=== PATIENT | female | born 1935 | race American Indian/Alaskan Native ===

== ENCOUNTER 2019-06-30 11:07 | Emergency (ER) | payer MEDICARE | END 2019-06-30 13:24 | disposition home or self-care (01) | LOC: ED 11:07 | CPT/HCPCS: 72100 ==

== ENCOUNTER 2019-07-01 13:43 | Emergency (ER) | payer MEDICARE ==
[2019-07-01 14:15] VITALS: BP 170/77
--- NOTE | 2019-07-01 15:06 | Event Note ---
Face to Face: For this encounter I have reviewed the PA/PSYCHOLOGIST COUNSELING documentation, treatment plan, medical decision making, and I had face to face time with this patient. Mrs. Woodward is a very pleasant 83-year-old female who presents with right groin pain head pain radiating to the back. She has a history of degenerative disc disease in the lumbar spine. She recently traveled from [place] by plane to visit her daughter for the holidays. She recalls slight pain in the groin and back when lifting luggage. She was evaluated by my colleague on yesterday. X-rays were obtained. She was discharged home with tramadol. Tramadol did not help her pain. Taft on Yesterday took away her pain on yes completely. I evaluated the patient. She has full range of motion in the right hip and back without deformity or tenderness. I do not suspect fracture without direct trauma. Recommended Taft prescripton.
--- NOTE | 2019-07-01 15:31 | Emergency Department Report ---
ED Recheck HPI - General Chief Complaint: Extremity Injury, Lower Stated Complaint: R SIDE PAIN Time Seen by Provider: 07/01/19 14:44 Source: patient Mode of arrival: Wheelchair Limitations: Physical Limitation - History of Present Illness Initial Comments: This is a 83-year-old female nontoxic, well nourished in appearance, no acute signs of distress presents to the ED with c/o of medication refill. Patient was seen yesterday and received x-rays of lumbar and hip that was unremarkable. Patient stated received Rutledge in the ER which causes pain to resolving subsided but then was discharged with tramadol and stated pain is not controlled with tramadol. Patient denies any new or acute injuries. Patient was seen yesterday and started to have pain to right hip/lower back area after heavy lifting luggage and feeling a sensation of popping. Patient denies any radiation of pain. Patient denies decreased range of motion or abnormal gait. Patient denies any trauma. Denies any bladder or bowel instability. Patient denies any urinary symptoms. Denies any fever, chills, nausea, vomiting, headache, stiff neck, chest pain or shortness of breath. Patient denies any numbness or tingling. Denies any allergies. Denies significant past medical history. MD Complaint: medication refill request -: days(s) Returns Today for: request for prescription Symptoms Since Prior Visit: no new symptoms Associated Symptoms: none. denies: fever, chills, chest pain, shortness of breath, rash, malaise, nasuea, abdominal pain - Related Data Previous Rx's Medication Instructions Recorded Last Taken Type traMADoL [Ultram] 50 mg PO Q6HR PRN #21 tablet 06/30/19 Unknown Rx HYDROcodone/APAP 7.5-325 [Rutledge 1 each PO Q8HR PRN #12 tablet 07/01/19 Unknown Rx 7.5/325] Allergies Allergy/AdvReac Type Severity Reaction Status Date / Time No Known Allergies Allergy Verified 06/30/19 11:34 ED Review of Systems ROS: Stated complaint: R SIDE PAIN Other details as noted in HPI Constitutional: denies: chills, fever Eyes: denies: eye pain, eye discharge, vision change ENT: denies: ear pain, throat pain Respiratory: denies: cough, shortness of breath, wheezing Cardiovascular: denies: chest pain, palpitations Endocrine: no symptoms reported Gastrointestinal: denies: abdominal pain, nausea, diarrhea Genitourinary: denies: urgency, dysuria, discharge Musculoskeletal: denies: back pain, joint swelling, arthralgia Skin: denies: rash, lesions Neurological: denies: headache, weakness, paresthesias Psychiatric: denies: anxiety, depression Hematological/Lymphatic: denies: easy bleeding, easy bruising ED Past Medical Hx - Past Medical History Hx Hypertension: Yes Additional medical history: L leg neuropathy. gastroparesis. fluid overload- on lasix - Surgical History Additional Surgical History: NERVE TUMOR REMOVAL. R ovary removal - Social History Smoking Status: Never Smoker Substance Use Type: None - Medications Home Medications: Home Medications Medication Instructions Recorded Confirmed Last Taken Type traMADoL [Ultram] 50 mg PO Q6HR PRN #21 tablet 06/30/19 Unknown Rx HYDROcodone/APAP 7.5-325 [Rutledge 1 each PO Q8HR PRN #12 tablet 07/01/19 Unknown Rx 7.5/325] ED Physical Exam - General Limitations: Physical Limitation General appearance: alert, in no apparent distress - Head Head exam: Present: atraumatic, normocephalic - GI/Abdominal GI/Abdominal exam: Present: soft, normal bowel sounds. Absent: distended, tenderness, guarding, rebound, rigid, diminished bowel sounds - Extremities Exam Extremities exam: Present: normal inspection, full ROM, tenderness, normal capillary refill. Absent: joint swelling, calf tenderness - Expanded Lower Extremity Exam Right Hip exam: Present: normal inspection, full ROM, tenderness, external rotation, internal rotation, pelvic stability. Absent: swelling, abrasion, laceration, ecchymosis, deformity, crepidus, dislocation, erythema, shortening Upper Leg exam: Present: normal inspection, full ROM. Absent: tenderness, swelling Knee exam: Present: normal inspection, full ROM. Absent: tenderness, swelling Lower Leg exam: Present: normal inspection, full ROM. Absent: tenderness, swelling, abrasion, laceration, ecchymosis, deformity, crepidus, dislocation, erythema, palpable cord, Cem's sign Ankle exam: Present: normal inspection, full ROM. Absent: tenderness, swelling Foot/Toe exam: Present: normal inspection, full ROM. Absent: tenderness, swelling Neuro vascular tendon exam: Present: no vascular compromise Gait: Positive: observed and limited by pain - Back Exam Back exam: Present: normal inspection, full ROM, paraspinal tenderness (right- sided lumbar paraspinal area). Absent: tenderness, CVA tenderness (R), CVA tenderness (L), muscle spasm, vertebral tenderness, rash noted - Expanded Back Exam Expanded Back exam: Absent: saddle anesthesia Back exam: Negative Straight Leg Raising: Left, Right - Neurological Exam Neurological exam: Present: alert, oriented X3 - Psychiatric Psychiatric exam: Present: normal affect, normal mood - Skin Skin exam: Present: warm, dry, intact, normal color. Absent: rash ED Course Vital Signs 07/01/19 14:13 Temperature 98.6 F Pulse Rate 73 Respiratory 18 Rate Blood Pressure 170/77 O2 Sat by Pulse 95 Oximetry - Reevaluation(s) Reevaluation #1: 07/01/19 15:32 Patient is speaking in full sentences with no signs of distress noted. - Consultations Consultation #1: 07/01/19 15:38 Patient has been consulted with Dr. Guanaco V about patient history, physical exam, and previous xrays and examined and screened patient and agrees to ED plan of care and discharge plan of care. ED Recheck MDM - Medical Decision Making This is a 83-year-old female that presents with right hip and lower back strain. Patient is stable and was examined by me and Dr. Blanc. Upon examination I do believe that this is a strain. X-rays has been reviewed and are unremarkable. There was no trauma. I will change patient medication to Rutledge as she stated this is what helps her. Patient was instructed not to take tramadol and to discard that previous prescription. There is no spinal tenderness. There is no cauda equina syndrome during examination. No bladder or bowel instability. Patient was also instructed to Follow-up with a primary care doctor in 3-5 days or if symptoms worsen and continue return to emergency room as soon as possible. At time of discharge, the patient does not seem toxic or ill in appearance. No acute signs of distress noted. Patient agrees to discharge treatment plan of care. No further questions noted by the patient. Critical care attestation.: If time is entered above; I have spent that time in minutes in the direct care of this critically ill patient, excluding procedure time. ED Disposition Clinical Impression: Strain of right hip Qualifiers: Encounter type: initial encounter Qualified Code(s): S76.011A - Strain of muscle, fascia and tendon of right hip, initial encounter Low back strain Qualifiers: Encounter type: initial encounter Qualified Code(s): S39.012A - Strain of muscle, fascia and tendon of lower back, initial encounter Disposition: TO HOME OR SELFCARE Is pt being admited?: No Does the pt Need Aspirin: No Condition: Stable Instructions: Low Back Strain (ED), RICE Therapy (ED), Hydrocodone/Acetaminophen (By mouth) Additional Instructions: Follow-up with a primary care and orthopedic doctor in 3-5 days or if symptoms worsen and continue return to emergency room as soon as possible. Do not operate any machinery while taking Rutledge as this may cause drowsiness. Prescriptions: HYDROcodone/APAP 7.5-325 [Rutledge 7.5/325] 1 each PO Q8HR PRN #12 tablet PRN Reason: Pain Referrals: PRIMARY CAREMD [Referring] - 3-5 Days OLAYINKA BRYANT MD [Staff Physician] - 3-5 Days [facility] [Outside] - 3-5 Days
[2019-07-01] MEDS ORDERED: HYDROcodone/ACETAMINOPHEN 5-325 MG TAB PO ONE (16:13)
== END 2019-07-01 16:33 | disposition home or self-care (01) ==
LOC: ED 13:43
DX: S39.012A Strain of muscle, fascia and tendon of lower back, initial encounter (principal); S76.011A Strain of muscle, fascia and tendon of right hip, initial encounter; I10 Essential (primary) hypertension; Z79.899 Other long term (current) drug therapy; X50.0XXA Overexertion from strenuous movement or load, initial encounter; Y93.89 Activity, other specified; Y92.89 Other specified places as the place of occurrence of the external cause; Y99.8 Other external cause status

== ENCOUNTER 2019-07-04 17:58 | Emergency (ER) | payer MEDICARE ==
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
--- NOTE | 2019-07-04 20:06 | Cat Scan Report ---
CT pelvis wo con INDICATION: MAIN: right hip pain after lifting luggage. TECHNIQUE: All CT scans at this location are performed using the following dose modulation technique: Automated exposure control. COMPARISON: None available. FINDINGS: There is no acute skeletal abnormality. Lower lumbar scoliosis and spondylosis is noted. Degenerative changes are noted in the pelvis/hips. Distal ureters and urinary bladder are unremarkable. No inflammation is seen within the included:. Th ere is no iliac chain adenopathy or groin adenopathy. No free fluid is seen in the pelvis. No hernia is identified. IMPRESSION: 1. No acute findings. 2. Incidental findings as above. Signer Name: Guy Weaver MD Signed: 07/04/2019 8:01 PM Workstation Name: [id number]
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
[2019-07-04] MEDS ORDERED: IBUPROFEN 600 MG TAB PO ONE (21:55)
[2019-07-05 01:28] VITALS: BP 202/92
== END 2019-07-04 23:15 | disposition home or self-care (01) ==
LOC: ED 17:58
DX: S76.011A Strain of muscle, fascia and tendon of right hip, initial encounter (principal); X58.XXXA Exposure to other specified factors, initial encounter; Y93.89 Activity, other specified; Y92.89 Other specified places as the place of occurrence of the external cause; Y99.8 Other external cause status
CPT/HCPCS: 72192